=== PATIENT | male | born 1940 | race Caucasian/White ===

== ENCOUNTER 2020-09-05 10:14 | Day surgery (SDC) | payer OTHER ==
[~2020-09-05] VITALS: Ht 177.8 cm; Wt 100.6 kg
== END 2020-09-05 12:40 | disposition home or self-care (01) ==
LOC: ORSCSDS 10:14
PROVIDERS: Surgery
PROC: 0DBH8ZX Excision of Cecum, Via Natural or Artificial Opening Endoscopic, Diagnostic (ICD-10-PCS; principal; 2020-09-05 10:30)
PROC: 0DBL8ZX Excision of Transverse Colon, Via Natural or Artificial Opening Endoscopic, Diagnostic (ICD-10-PCS; principal; 2020-09-05 10:30)
PROC: 0DBM8ZX Excision of Descending Colon, Via Natural or Artificial Opening Endoscopic, Diagnostic (ICD-10-PCS; principal; 2020-09-05 10:30)
DX: R19.4 Change in bowel habit (principal); D12.3 Benign neoplasm of transverse colon; D12.0 Benign neoplasm of cecum; D12.4 Benign neoplasm of descending colon; K57.30 Diverticulosis of large intestine without perforation or abscess without bleeding; I10 Essential (primary) hypertension; G47.33 Obstructive sleep apnea (adult) (pediatric); Z87.891 Personal history of nicotine dependence; E11.40 Type 2 diabetes mellitus with diabetic neuropathy, unspecified; Z79.4 Long term (current) use of insulin; Z79.82 Long term (current) use of aspirin; Z79.899 Other long term (current) drug therapy
CPT/HCPCS: 82947; 88305; J2704; J7120

== ENCOUNTER 2020-11-08 10:04 | Emergency (ER) | payer OTHER ==
[~2020-11-08] VITALS: Ht 180.3 cm; Wt 61.2 kg
[2020-11-08 11:26] LABS: BASOPHILS ABSOLUTE AUTO 0.09 K/mm3 (0.00-0.23); BASOPHILS PERCENT AUTO 1 % (0-2); EOSINOPHILS ABSOLUTE AUTO 0.13 K/mm3 (0.00-0.68); EOSINOPHILS PERCENT AUTO 2 % (0-6); Hematocrit 44.4 % (37.0-53.0); Hemoglobin 15.1 g/dL (13.5-17.5); IMMATURE GRAN ABSOLUTE AUTO 0.02 K/mm3 (0.00-0.10); IMMATURE GRAN PERCENT AUTO 0 % (0-1); LYMPHOCYTES ABSOLUTE AUTO 1.73 K/mm3 (0.84-5.20); LYMPHOCYTES PERCENT AUTO 20 % (21-46); MONOCYTES ABSOLUTE AUTO 0.67 K/mm3 (0.16-1.47); MONOCYTES PERCENT AUTO 8 % (4-13); Mean Corpuscular HGB 31.3 pg (26.0-34.0); Mean Corpuscular Volume 92 fL (80-100); Mean Platelet Volume 10.2 fL (9.1-12.4); NEUTROPHILS ABSOLUTE AUTO 6.18 K/mm3 (1.96-9.15); NEUTROPHILS PERCENT AUTO 70 % (41-73); Platelet Count 256 K/mm3 (150-400); RDW Coefficient Variation 13.7 % (11.7-14.2); RDW Standard Deviation 46.4 fL (35.1-46.3); Red Blood Cell Count 4.82 M/mm3 (4.30-5.90); White Blood Cell Count 8.82 K/mm3 (4.00-11.30)
[2020-11-08 11:48] LABS: Alanine Aminotransfer (ALT/SGP 28 U/L (12-78); Albumin, Blood 3.8 g/dL (3.4-5.0); Albumin/Globulin Ratio 1.1 (0.8-1.8); Alk Phos 76 U/L (50-136); Anion Gap 5 mmol/L (6-16); Aspartate Aminotrans (AST/SGOT 18 U/L (12-37); Blood Urea Nitrogen 25 mg/dL (8-24); Bun/Creatinine Ratio 21.4 (12.0-20.0); CO2, Blood 25 mmol/L (21-32); Calcium, Blood 9.2 mg/dL (8.5-10.1); Chloride, Blood 111 mmol/L (98-108); Creatinine, Blood 1.17 mg/dL (0.60-1.20); Globulin, Blood 3.5 g/dL (2.2-4.0); Glomerular Filtration Rate >60 (60-); Glucose, Blood 136 mg/dL (70-99); Potassium, Blood 4.3 mmol/L (3.5-5.5); Sodium, Blood 141 mmol/L (136-145); Total Protein, Blood 7.3 g/dL (6.4-8.2); Troponin I <0.015 ng/mL (0.000-0.040)
== END 2020-11-08 14:48 | disposition home or self-care (01) ==
LOC: ER 10:04
PROVIDERS: Physician Assistant
DX: R06.00 Dyspnea, unspecified (principal); Z20.822 Contact with and (suspected) exposure to COVID-19; Z88.1 Allergy status to other antibiotic agents
CPT/HCPCS: 36415; 71046; 80053; 83880; 84484; 85025; 93005; 93010; 99285-25; A9270

== ENCOUNTER 2020-12-07 12:33 | Emergency (ER) | payer OTHER ==
[~2020-12-07] VITALS: Ht 177.8 cm; Wt 106.6 kg
[2020-12-07 13:11] LABS: BASOPHILS ABSOLUTE AUTO 0.09 K/mm3 (0.00-0.23); BASOPHILS PERCENT AUTO 1 % (0-2); EOSINOPHILS ABSOLUTE AUTO 0.07 K/mm3 (0.00-0.68); EOSINOPHILS PERCENT AUTO 1 % (0-6); Hematocrit 45.3 % (37.0-53.0); Hemoglobin 15.4 g/dL (13.5-17.5); IMMATURE GRAN ABSOLUTE AUTO 0.03 K/mm3 (0.00-0.10); IMMATURE GRAN PERCENT AUTO 0 % (0-1); LYMPHOCYTES PERCENT AUTO 18 % (21-46); MONOCYTES ABSOLUTE AUTO 0.58 K/mm3 (0.16-1.47); MONOCYTES PERCENT AUTO 7 % (4-13); Mean Corpuscular HGB 31.1 pg (26.0-34.0); Mean Corpuscular Volume 92 fL (80-100); NEUTROPHILS ABSOLUTE AUTO 5.95 K/mm3 (1.96-9.15); NEUTROPHILS PERCENT AUTO 72 % (41-73); Platelet Count 255 K/mm3 (150-400); RDW Coefficient Variation 13.4 % (11.7-14.2); RDW Standard Deviation 45.4 fL (35.1-46.3); Red Blood Cell Count 4.95 M/mm3 (4.30-5.90); White Blood Cell Count 8.22 K/mm3 (4.00-11.30)
[2020-12-07 13:24] LABS: Alanine Aminotransfer (ALT/SGP 29 U/L (12-78); Albumin, Blood 3.9 g/dL (3.4-5.0); Alk Phos 69 U/L (50-136); Anion Gap 8 mmol/L (6-16); Aspartate Aminotrans (AST/SGOT 23 U/L (12-37); Bilirubin, Total 1.5 mg/dL (0.1-1.0); Blood Urea Nitrogen 26 mg/dL (8-24); Bun/Creatinine Ratio 24.5 (12.0-20.0); CO2, Blood 22 mmol/L (21-32); Calcium, Blood 9.4 mg/dL (8.5-10.1); Chloride, Blood 108 mmol/L (98-108); Creatinine, Blood 1.06 mg/dL (0.60-1.20); Globulin, Blood 3.8 g/dL (2.2-4.0); Glomerular Filtration Rate >60 (60-); Glucose, Blood 135 mg/dL (70-99); Potassium, Blood 4.5 mmol/L (3.5-5.5); Sodium, Blood 138 mmol/L (136-145); Total Protein, Blood 7.7 g/dL (6.4-8.2)
[2020-12-07 15:07] LABS: Source, Urine Clean Catch
[2020-12-07 15:13] LABS: Appearance, Urine Clear (Clear); Bilirubin, Urine Neg (Neg); Blood, Urine Neg (Neg); Color, Urine Yellow (P-Yellow); Glucose Qualitative, Urine Neg (Neg); Ketones, Urine 1+ (Neg); Leukocyte Esterase, Urine Neg (Neg); Nitrite, Urine Neg (Neg); Protein, Urine Neg (Neg); Specific Gravity, Urine 1.005 (1.003-1.022); Urobilinogen, Urine NORM (Normal)
== END 2020-12-07 16:25 | disposition home or self-care (01) ==
LOC: ER 12:33
PROVIDERS: Emergency Medicine; Student in an Organized Health Care Education/Training Program
DX: R40.4 Transient alteration of awareness (principal); R53.1 Weakness; R30.0 Dysuria; Z88.1 Allergy status to other antibiotic agents
CPT/HCPCS: 36415; 51701; 51798; 80053; 81003; 82947; 84484; 85025; 93005; 93010; A9270

== ENCOUNTER 2020-12-10 10:32 | Emergency (ER) | payer OTHER ==
[~2020-12-10] VITALS: Ht 170.2 cm; Wt 90.7 kg
[2020-12-10 11:21] LABS: BASOPHILS ABSOLUTE AUTO 0.07 K/mm3 (0.00-0.23); BASOPHILS PERCENT AUTO 1 % (0-2); EOSINOPHILS ABSOLUTE AUTO 0.08 K/mm3 (0.00-0.68); EOSINOPHILS PERCENT AUTO 1 % (0-6); Hematocrit 43.9 % (37.0-53.0); Hemoglobin 14.7 g/dL (13.5-17.5); IMMATURE GRAN ABSOLUTE AUTO 0.03 K/mm3 (0.00-0.10); IMMATURE GRAN PERCENT AUTO 0 % (0-1); LYMPHOCYTES ABSOLUTE AUTO 1.43 K/mm3 (0.84-5.20); LYMPHOCYTES PERCENT AUTO 21 % (21-46); MONOCYTES PERCENT AUTO 7 % (4-13); Mean Corpuscular HGB Conc 33.5 g/dL (31.5-36.5); Mean Corpuscular Volume 93 fL (80-100); Mean Platelet Volume 10.4 fL (9.1-12.4); NEUTROPHILS PERCENT AUTO 70 % (41-73); Platelet Count 240 K/mm3 (150-400); RDW Coefficient Variation 13.7 % (11.7-14.2); RDW Standard Deviation 46.3 fL (35.1-46.3); Red Blood Cell Count 4.74 M/mm3 (4.30-5.90); White Blood Cell Count 6.91 K/mm3 (4.00-11.30)
[2020-12-10 11:46] LABS: Alanine Aminotransfer (ALT/SGP 27 U/L (12-78); Albumin, Blood 3.8 g/dL (3.4-5.0); Alk Phos 74 U/L (50-136); Anion Gap 6 mmol/L (6-16); Aspartate Aminotrans (AST/SGOT 23 U/L (12-37); Bilirubin, Total 1.3 mg/dL (0.1-1.0); Blood Urea Nitrogen 38 mg/dL (8-24); Bun/Creatinine Ratio 28.8 (12.0-20.0); CO2, Blood 22 mmol/L (21-32); Calcium, Blood 9.7 mg/dL (8.5-10.1); Chloride, Blood 109 mmol/L (98-108); Creatinine, Blood 1.32 mg/dL (0.60-1.20); Globulin, Blood 3.8 g/dL (2.2-4.0); Glomerular Filtration Rate 52 (60-); Glucose, Blood 179 mg/dL (70-99); Potassium, Blood 4.6 mmol/L (3.5-5.5); Sodium, Blood 137 mmol/L (136-145); Total Protein, Blood 7.6 g/dL (6.4-8.2); Troponin I <0.015 ng/mL (0.000-0.040)
[2020-12-10 11:58] LABS: Acetaminophen, Random <2.0 ug/mL (10.0-30.0)
== END 2020-12-10 13:30 | disposition home or self-care (01) ==
LOC: ER 10:32
PROVIDERS: Emergency Medicine Emergency Medical Services
DX: N17.9 Acute kidney failure, unspecified (principal); R33.9 Retention of urine, unspecified; Z88.1 Allergy status to other antibiotic agents
CPT/HCPCS: 36415; 51702; 51798; 70450; 71045; 80053; 81003; 83880; 84484; 85025; 93005; 93010; 99285-25; G0480

== ENCOUNTER 2020-12-12 09:34 | Emergency (ER) | payer OTHER ==
[~2020-12-12] VITALS: Ht 182.9 cm; Wt 104.3 kg
== END 2020-12-12 10:50 | disposition home or self-care (01) ==
LOC: ER 09:34
DX: Z46.6 Encounter for fitting and adjustment of urinary device (principal); Z88.1 Allergy status to other antibiotic agents
CPT/HCPCS: 99283

== ENCOUNTER 2020-12-15 11:07 | Emergency (ER) | payer OTHER ==
[~2020-12-15] VITALS: Ht 172.7 cm; Wt 86.2 kg
== END 2020-12-15 11:45 | disposition home or self-care (01) ==
LOC: ER 11:07
DX: Z46.6 Encounter for fitting and adjustment of urinary device (principal); Z88.1 Allergy status to other antibiotic agents

== ENCOUNTER 2020-12-21 09:25 | Emergency (ER) | payer OTHER ==
[~2020-12-21] VITALS: Ht 172.7 cm; Wt 102.1 kg
[2020-12-21] MEDS ORDERED: BASAGLAR K100 UNIT/3 SC (09:35)
[2020-12-21] MEDS ORDERED: BUSP10 PO (09:36)
[2020-12-21] MEDS ORDERED: DUTASTERIDE0.5 M3 PO (09:37)
[2020-12-21] MEDS ORDERED: MYRBETRIQ25 MG PO (09:37)
[2020-12-21] MEDS ORDERED: LOMOTIL 2.5-0.1 EACH PO (09:37)
[2020-12-21] MEDS ORDERED: EUTHYROX100 MC1 PO (09:37)
[2020-12-21] MEDS ORDERED: METFORMIN HCL1000 M9 PO (09:37)
[2020-12-21] MEDS ORDERED: Zestril40 MG PO (09:37)
[2020-12-21] MEDS ORDERED: TAMSULOSIN HCL0.4 M1 PO (09:38)
[2020-12-21 10:04] LABS: Source, Urine Catheter
[2020-12-21 10:13] LABS: Appearance, Urine Bloody (Clear); Bilirubin, Urine Neg (Neg); Blood, Urine 5+ (Neg); Color, Urine Red (P-Yellow); Glucose Qualitative, Urine Neg (Neg); Ketones, Urine 1+ (Neg); Leukocyte Esterase, Urine 3+ (Neg); Nitrite, Urine Neg (Neg); Protein, Urine 4+ (Neg); Urobilinogen, Urine NORM (Normal)
[2020-12-21 10:25] LABS: Red Blood Cells, Urine TNTC /hpf (0-2); White Blood Cells, Urine 25-50 /hpf (0-5)
[2020-12-21 10:27] LABS: Bacteria Many /hpf; Squamous Epithelial Cells Not Seen /hpf (Few)
[2020-12-21] MEDS ORDERED: SULTRIDS PO (10:45)
== END 2020-12-21 11:00 | disposition home or self-care (01) ==
LOC: ER 09:25
PROVIDERS: Student in an Organized Health Care Education/Training Program
DX: N39.0 Urinary tract infection, site not specified (principal); R31.0 Gross hematuria; Z88.1 Allergy status to other antibiotic agents; Z79.4 Long term (current) use of insulin; Z79.899 Other long term (current) drug therapy
CPT/HCPCS: 81001; 87077; 87086; 87186; 99283; A9270

== ENCOUNTER 2020-12-24 12:12 | Emergency (ER) | payer OTHER ==
[~2020-12-24] VITALS: Ht 175.3 cm; Wt 83.9 kg
[~2020-12-24 12:12] MED LIST: BASAGLAR K100 UNIT/3 SC; BUSP10 PO; DUTASTERIDE0.5 M3 PO; EUTHYROX100 MC1 PO; LOMOTIL 2.5-0.1 EACH PO; METFORMIN HCL1000 M9 PO; MYRBETRIQ25 MG PO; SULTRIDS PO; TAMSULOSIN HCL0.4 M1 PO; Zestril40 MG PO
[2020-12-24] MEDS ORDERED: CEFP200 PO (13:53)
== END 2020-12-24 15:35 | disposition home or self-care (01) ==
LOC: ER 12:12
DX: T83.9XXA Unspecified complication of genitourinary prosthetic device, implant and graft, initial encounter (principal); N39.0 Urinary tract infection, site not specified; Z88.1 Allergy status to other antibiotic agents; Z79.899 Other long term (current) drug therapy; Z79.4 Long term (current) use of insulin
CPT/HCPCS: 99283; A9270

== ENCOUNTER 2020-12-27 09:40 | Emergency (ER) | payer OTHER ==
[~2020-12-27] VITALS: Ht 172.7 cm; Wt 102.1 kg
[~2020-12-27 09:40] MED LIST changes: +CEFP200 PO
[2020-12-27] MEDS ORDERED: SACC250C PO (10:21)
== END 2020-12-27 10:36 | disposition home or self-care (01) ==
LOC: ER 09:40
DX: R19.7 Diarrhea, unspecified (principal); I10 Essential (primary) hypertension; E03.9 Hypothyroidism, unspecified; E11.9 Type 2 diabetes mellitus without complications; Z88.1 Allergy status to other antibiotic agents; Z79.4 Long term (current) use of insulin; Z79.899 Other long term (current) drug therapy
CPT/HCPCS: 99283

== ENCOUNTER → 2021-04-24 | Outpatient (CLI) | payer OTHER ==
[~2021-04-24] MED LIST changes: +SACC250C PO
[2021-04-24 14:55] LABS: Microalb/Creat Ratio UR, Rand 46.274 mg/g (0.000-30.000); Microalbumin, Random Urine 47.2 mg/L (0.000-20.000)
== END | disposition home or self-care (01) ==
LOC: LAB SHORT 11:24
PROVIDERS: Physician Assistant Medical
DX: E11.65 Type 2 diabetes mellitus with hyperglycemia (principal)
CPT/HCPCS: 82043; 82570

== ENCOUNTER 2021-08-10 10:21 | Emergency (ER) | payer OTHER ==
[~2021-08-10] VITALS: Ht 180.3 cm; Wt 120.2 kg
[~2021-08-10 10:21] MED LIST changes: +LISI20 PO; +[UNRECOGNIZED DRUG - CODE] PO
[2021-08-10 12:09] LABS: Source, Urine Foley catheter
[2021-08-10 12:12] LABS: Appearance, Urine Clear (Clear); Bilirubin, Urine Neg (Neg); Blood, Urine 2+ (Neg); Color, Urine Yellow (P-Yellow); Glucose Qualitative, Urine 4+ (Neg); Ketones, Urine Neg (Neg); Leukocyte Esterase, Urine 3+ (Neg); Nitrite, Urine Neg (Neg); Protein, Urine 1+ (Neg); Urobilinogen, Urine NORM (Normal)
[2021-08-10 12:29] LABS: Bacteria Few /hpf; Squamous Epithelial Cells Rare /hpf (Few)
== END 2021-08-10 12:16 | disposition home or self-care (01) ==
LOC: ER 10:21
PROVIDERS: Emergency Medicine
DX: T83.031A Leakage of indwelling urethral catheter, initial encounter (principal); Y73.8 Miscellaneous gastroenterology and urology devices associated with adverse incidents, not elsewhere classified; I10 Essential (primary) hypertension; E11.9 Type 2 diabetes mellitus without complications; Z79.84 Long term (current) use of oral hypoglycemic drugs; Z79.899 Other long term (current) drug therapy; Z88.1 Allergy status to other antibiotic agents; Z87.891 Personal history of nicotine dependence
CPT/HCPCS: 51702; 81001

== ENCOUNTER 2021-08-15 14:01 | Emergency (ER) | payer OTHER ==
[~2021-08-15] VITALS: Ht 180.3 cm; Wt 108.9 kg
== END 2021-08-15 16:17 | disposition home or self-care (01) ==
LOC: ER 14:01
DX: T83.9XXA Unspecified complication of genitourinary prosthetic device, implant and graft, initial encounter (principal); I86.1 Scrotal varices; E11.9 Type 2 diabetes mellitus without complications; Z79.84 Long term (current) use of oral hypoglycemic drugs; Z79.899 Other long term (current) drug therapy; Z88.1 Allergy status to other antibiotic agents; Z87.891 Personal history of nicotine dependence
CPT/HCPCS: 76870

== ENCOUNTER 2021-08-20 14:39 | Emergency (ER) | payer OTHER ==
[~2021-08-20] VITALS: Ht 180.3 cm; Wt 90.7 kg
[2021-08-20 15:17] LABS: BASOPHILS ABSOLUTE AUTO 0.09 K/mm3 (0.00-0.23); BASOPHILS PERCENT AUTO 1 % (0-2); EOSINOPHILS ABSOLUTE AUTO 0.12 K/mm3 (0.00-0.68); EOSINOPHILS PERCENT AUTO 2 % (0-6); Hematocrit 41.3 % (37.0-53.0); Hemoglobin 14.1 g/dL (13.5-17.5); IMMATURE GRAN ABSOLUTE AUTO 0.02 K/mm3 (0.00-0.10); IMMATURE GRAN PERCENT AUTO 0 % (0-1); LYMPHOCYTES ABSOLUTE AUTO 1.73 K/mm3 (0.84-5.20); LYMPHOCYTES PERCENT AUTO 25 % (21-46); MONOCYTES ABSOLUTE AUTO 0.53 K/mm3 (0.16-1.47); MONOCYTES PERCENT AUTO 8 % (4-13); Mean Corpuscular HGB Conc 34.1 g/dL (31.5-36.5); Mean Corpuscular Volume 94 fL (80-100); Mean Platelet Volume 10.4 fL (9.1-12.4); NEUTROPHILS ABSOLUTE AUTO 4.55 K/mm3 (1.96-9.15); NEUTROPHILS PERCENT AUTO 65 % (41-73); Platelet Count 282 K/mm3 (150-400); RDW Coefficient Variation 13.2 % (11.7-14.2); RDW Standard Deviation 45.4 fL (35.1-46.3); White Blood Cell Count 7.04 K/mm3 (4.00-11.30)
[2021-08-20 15:41] LABS: Source, Urine Foley catheter
[2021-08-20 15:41] LABS: Bun/Creatinine Ratio 27.4 (12.0-20.0); Calcium, Blood 9.9 mg/dL (8.5-10.1); Creatinine, Blood 1.64 mg/dL (0.60-1.20); Potassium, Blood 4.7 mmol/L (3.5-5.5)
[2021-08-20 15:44] LABS: Bilirubin, Urine Neg (Neg); Blood, Urine Neg (Neg); Color, Urine Yellow (P-Yellow); Glucose Qualitative, Urine Neg (Neg); Ketones, Urine Neg (Neg); Leukocyte Esterase, Urine Neg (Neg); Nitrite, Urine Neg (Neg); Protein, Urine Neg (Neg); Urobilinogen, Urine NORM (Normal)
[2021-08-20 15:57] LABS: Free Thyroxine 0.61 ng/dL (0.70-1.60)
[2021-08-20 15:59] LABS: Thyroid Stimulating Hormone 14.1 uIU/mL (0.360-4.800); Triiodothyronine, Free 1.45 pg/mL (2.18-3.98)
[2021-08-20 16:06] LABS: Appearance, Urine Hazy (Clear)
[2021-08-20 16:07] LABS: Amorphous Light (0-Heavy); Bacteria Mod /hpf; Red Blood Cells, Urine 0-2 /hpf (0-2); Squamous Epithelial Cells Not Seen /hpf (Few); White Blood Cells, Urine 0-2 /hpf (0-5)
[2021-08-20] MEDS ORDERED: EUTHYROX100 MC1 PO (16:55)
[2021-08-20 18:30] LABS: Bun/Creatinine Ratio 27.6 (12.0-20.0); Calcium, Blood 9.2 mg/dL (8.5-10.1); Creatinine, Blood 1.52 mg/dL (0.60-1.20); Potassium, Blood 4.9 mmol/L (3.5-5.5)
== END 2021-08-20 20:10 | disposition home or self-care (01) ==
LOC: ER 14:39
PROVIDERS: Student in an Organized Health Care Education/Training Program
DX: F03.90 Unspecified dementia, unspecified severity, without behavioral disturbance, psychotic disturbance, mood disturbance, and anxiety (principal); E11.9 Type 2 diabetes mellitus without complications; I10 Essential (primary) hypertension; E03.9 Hypothyroidism, unspecified; R74.8 Abnormal levels of other serum enzymes; Z88.1 Allergy status to other antibiotic agents; Z79.84 Long term (current) use of oral hypoglycemic drugs; Z79.899 Other long term (current) drug therapy; Z87.891 Personal history of nicotine dependence; Z91.14 Patient's other noncompliance with medication regimen; Z74.1 Need for assistance with personal care
CPT/HCPCS: 36415; 80048; 81001; 84439; 84443; 84481; 85025; 99285; A9270; J7030

== ENCOUNTER 2021-10-22 09:56 | Inpatient (IN) | payer OTHER ==
[~2021-10-22] VITALS: Ht 177.8 cm; Wt 87.3 kg
[2021-10-22 10:39] LABS: BASOPHILS ABSOLUTE AUTO 0.07 K/mm3 (0.00-0.23); BASOPHILS PERCENT AUTO 1 % (0-2); EOSINOPHILS ABSOLUTE AUTO 0.04 K/mm3 (0.00-0.68); EOSINOPHILS PERCENT AUTO 0 % (0-6); Hematocrit 45.5 % (37.0-53.0); Hemoglobin 15.3 g/dL (13.5-17.5); IMMATURE GRAN ABSOLUTE AUTO 0.06 K/mm3 (0.00-0.10); IMMATURE GRAN PERCENT AUTO 0 % (0-1); LYMPHOCYTES ABSOLUTE AUTO 1.93 K/mm3 (0.84-5.20); LYMPHOCYTES PERCENT AUTO 14 % (21-46); MONOCYTES ABSOLUTE AUTO 1.21 K/mm3 (0.16-1.47); MONOCYTES PERCENT AUTO 9 % (4-13); Mean Corpuscular HGB Conc 33.6 g/dL (31.5-36.5); Mean Corpuscular Volume 92 fL (80-100); Mean Platelet Volume 10.9 fL (9.1-12.4); NEUTROPHILS ABSOLUTE AUTO 10.58 K/mm3 (1.96-9.15); NEUTROPHILS PERCENT AUTO 76 % (41-73); Platelet Count 344 K/mm3 (150-400); RDW Coefficient Variation 13.2 % (11.7-14.2); RDW Standard Deviation 45.3 fL (35.1-46.3); Red Blood Cell Count 4.94 M/mm3 (4.30-5.90); White Blood Cell Count 13.89 K/mm3 (4.00-11.30)
[2021-10-22 10:46] LABS: Albumin, Blood 3.4 g/dL (3.4-5.0); Albumin/Globulin Ratio 0.8 (0.8-1.8); Bilirubin, Total 1.1 mg/dL (0.1-1.0); Bun/Creatinine Ratio 18.2 (12.0-20.0); Calcium, Blood 10.1 mg/dL (8.5-10.1); Creatinine, Blood 4.28 mg/dL (0.60-1.20); Globulin, Blood 4.3 g/dL (2.2-4.0); Potassium, Blood 5.7 mmol/L (3.5-5.5); Total Protein, Blood 7.7 g/dL (6.4-8.2)
[2021-10-22 11:46] LABS: Creatine Kinase MB 1.8 ng/mL (0.0-3.6); Creatine Kinase MB Index 0.9 (0.0-4.0)
[2021-10-22 11:56] LABS: Source, Urine Foley catheter
[2021-10-22 12:31] LABS: Appearance, Urine Cloudy (Clear); Blood, Urine 3+ (Neg); Color, Urine Yellow (P-Yellow); Glucose Qualitative, Urine Neg (Neg); Ketones, Urine 2+ (Neg); Leukocyte Esterase, Urine 3+ (Neg); Nitrite, Urine Neg (Neg); Protein, Urine 2+ (Neg); Specific Gravity, Urine 1.015 (1.003-1.022); Urobilinogen, Urine NORM (Normal)
[2021-10-22 12:46] LABS: Bilirubin, Urine 1+ (Neg)
[2021-10-22 12:47] LABS: White Blood Cells, Urine TNTC /hpf (0-5)
[2021-10-22 12:48] LABS: Bacteria Many /hpf; Calcium Oxalate Crystals Few /hpf; Squamous Epithelial Cells Few /hpf (Few)
[2021-10-22] MEDS ORDERED: DONEPEZIL HCL5 M2 PO (12:51)
[2021-10-22] MEDS ORDERED: PROZAC20 M9 PO (12:51)
[2021-10-22] MEDS ORDERED: BASAGLAR K100 UNIT/3 SC (16:23)
--- NOTE | 2021-10-22 17:40 | NUR ---
SPOKE WITH DR. TOMAS AND HE WILL BE UP SOON TO SEE THIS PATIENT AND ENTER FURTHER ORDERS. MED REC UPDATED.
--- NOTE | 2021-10-22 18:23 | NUR ---
SPOKE WITH CLARE, PATIENTS DAUGHTER PHONE # AND SHE HAD CONCERNS ABOUT PATIENT GOING BACK TO [facility]. SHE HAS BEEN WORKING ON FINDING HER DAD A FACILITY THT CAN OFFER MORE CARE NEAR [place], OR WHERE SHE LIVES. SHE WOULD LIKE A CALL FROM THE OFFICE RN.
[2021-10-23 05:31] LABS: BASOPHILS ABSOLUTE AUTO 0.06 K/mm3 (0.00-0.23); BASOPHILS PERCENT AUTO 1 % (0-2); EOSINOPHILS ABSOLUTE AUTO 0.26 K/mm3 (0.00-0.68); EOSINOPHILS PERCENT AUTO 4 % (0-6); Hematocrit 42.1 % (37.0-53.0); Hemoglobin 13.9 g/dL (13.5-17.5); IMMATURE GRAN ABSOLUTE AUTO 0.02 K/mm3 (0.00-0.10); IMMATURE GRAN PERCENT AUTO 0 % (0-1); LYMPHOCYTES PERCENT AUTO 28 % (21-46); MONOCYTES ABSOLUTE AUTO 0.82 K/mm3 (0.16-1.47); MONOCYTES PERCENT AUTO 11 % (4-13); Mean Corpuscular HGB 30.8 pg (26.0-34.0); Mean Corpuscular Volume 93 fL (80-100); Mean Platelet Volume 10.9 fL (9.1-12.4); NEUTROPHILS ABSOLUTE AUTO 4.06 K/mm3 (1.96-9.15); NEUTROPHILS PERCENT AUTO 56 % (41-73); Platelet Count 269 K/mm3 (150-400); RDW Coefficient Variation 13.3 % (11.7-14.2); RDW Standard Deviation 45.3 fL (35.1-46.3); Red Blood Cell Count 4.51 M/mm3 (4.30-5.90); White Blood Cell Count 7.22 K/mm3 (4.00-11.30)
[2021-10-23 06:03] LABS: Calcium, Blood 8.9 mg/dL (8.5-10.1); Creatinine, Blood 2.71 mg/dL (0.60-1.20); Magnesium, Blood 2.6 mg/dL (1.6-2.4); Potassium, Blood 5.1 mmol/L (3.5-5.5)
--- NOTE | 2021-10-23 07:22 | NUR ---
SHIFT SUMMARY: PATIENT IS A&O TO SELF AND PLACE. NO REPORTS OF DISCOMFORT. VSS, UP WITH AX2 TO THE BSC. UNABLE TO HAVE BM. CHOU IS DRAINING A CLEAR YELLOW URINE. IVF INFUSING PER MD ORDER. POOR APPETITE PERSISTS. ATE 1 ICE CREAM FOR SNACK. BLOOD GLUCOSE WAS 82 THIS AM. PATIENT REFUSED SNACK, DAY SHIFT RN MADE AWARE IN REPORT.
--- NOTE | 2021-10-23 18:02 | NUR ---
SHIFT SUMMARY NO ACUTE CHANGES DURING SHIFT. PATIENT LETHARGIC DURING MAJORITY OF DAY, SLEEPING EXCESSIVELY. PT SLIGHTLY MORE AROUSABLE TOWARDS END OF SHIFT. CONTINUE IV FLUIDS AND ABX. CHOU IN PLACE, DRAINING TO GRAVITY. NO C/O PAIN.
--- NOTE | 2021-10-24 06:13 | NUR ---
SHIFT SUMMARY: PATIENT IS A&OX2-3, ABLE TO MAKE NEEDS KNOWN, VSS. REPORTING BACK PAIN, TYLENOL WAS GIVEN WITH POOR EFFECT. DR GONZALEZ WAS NOTIFIED AND ORDERS FOR TRAMADOL 50 MG X1 WAS OBTAINED AND MED WAS GIVEN WITH AGAIN FAIR EFFECT. HEAT THERAPY WAS APPLIED TO BACK. POOR APPETITE CONTINUES. BLOOD GLUCOSE AT 000 WAS 181.
[2021-10-24 15:44] LABS: Bun/Creatinine Ratio 34.5 (12.0-20.0); Calcium, Blood 8.7 mg/dL (8.5-10.1); Creatinine, Blood 1.13 mg/dL (0.60-1.20); Potassium, Blood 4.8 mmol/L (3.5-5.5)
--- NOTE | 2021-10-24 18:17 | NUR ---
SHIFT SUMMARY NO ACUTE CHANGES DURING SHIFT. PT ALERT AND ORIENTED, FOLLOWS COMMANDS. PT MORE ALERT TODAY. C/O BACK PAIN, HEAT APPLIED, PRN PAIN MEDICATIONS ADMINISTERED. WILL CONTINUE TO MONITOR. PT/OT EVAL COMPLETED TODAY. PT STILL HAS DECREASED APPETITE WITH MINIMAL INTAKE. WILL CONTINUE TO MONITOR.
[2021-10-25 04:54] LABS: BASOPHILS ABSOLUTE AUTO 0.05 K/mm3 (0.00-0.23); BASOPHILS PERCENT AUTO 1 % (0-2); EOSINOPHILS ABSOLUTE AUTO 0.22 K/mm3 (0.00-0.68); EOSINOPHILS PERCENT AUTO 4 % (0-6); Hematocrit 38.5 % (37.0-53.0); Hemoglobin 12.4 g/dL (13.5-17.5); IMMATURE GRAN ABSOLUTE AUTO 0.02 K/mm3 (0.00-0.10); IMMATURE GRAN PERCENT AUTO 0 % (0-1); LYMPHOCYTES ABSOLUTE AUTO 1.82 K/mm3 (0.84-5.20); LYMPHOCYTES PERCENT AUTO 34 % (21-46); MONOCYTES ABSOLUTE AUTO 0.63 K/mm3 (0.16-1.47); MONOCYTES PERCENT AUTO 12 % (4-13); Mean Corpuscular HGB 30.5 pg (26.0-34.0); Mean Corpuscular HGB Conc 32.2 g/dL (31.5-36.5); Mean Corpuscular Volume 95 fL (80-100); Mean Platelet Volume 10.9 fL (9.1-12.4); NEUTROPHILS ABSOLUTE AUTO 2.62 K/mm3 (1.96-9.15); NEUTROPHILS PERCENT AUTO 49 % (41-73); Platelet Count 253 K/mm3 (150-400); RDW Coefficient Variation 13.2 % (11.7-14.2); RDW Standard Deviation 45.9 fL (35.1-46.3); Red Blood Cell Count 4.06 M/mm3 (4.30-5.90); White Blood Cell Count 5.36 K/mm3 (4.00-11.30)
[2021-10-25 05:21] LABS: Bun/Creatinine Ratio 27.8 (12.0-20.0); Calcium, Blood 8.7 mg/dL (8.5-10.1); Creatinine, Blood 1.08 mg/dL (0.60-1.20)
--- NOTE | 2021-10-25 05:23 | NUR ---
SHIFT SUMMARY AOX2-SELF, TOWN. FORGETFUL OF DATE OR SITUATION. VSS. REPORTS PAIN IN BACK, MEDICATED 1X c NORCO & PT SLEPT SOUGHLY T/O NIGHT. DENIES N/V OR DYSPNEA. AWAITING PLACEMENT. CHRONIC CHOU PATENT & DRAINING CLEAR YELLOW URINE. CALL LIGHT & BED ALARM IN PLACE. WILL MONITOR.
--- NOTE | 2021-10-25 18:15 | NUR ---
SHIFT SUMMARY NO ACUTE CHANGES DURING SHIFT. PT ALERT AND ORIENTED, FOLLOWS COMMANDS. PT UP OOB TO CHAIR FOR MEALS. CONTINUED C/O BACK PAIN, PRN MEDICATIONS ADMINISTERED, PT STATES EFFECTIVE. PT PENDING PLACEMENT STILL. WILL CONTINUE TO MONITOR.
--- NOTE | 2021-10-26 04:47 | NUR ---
SHIFT SUMMARY AOX2-3, SELF, DATE, TOWN, FOLLOWING DIRECTION. UNAWARE PLACE OR SITUATION, FORGETFUL. VSS. REPORTS PAIN IN LOW BACK, L SIDE ABD, MEDICATED c TYLENOL & 1X c NORCO. PT ALSO REPORTED FEELING NAUSEATED, MEDICATED c ZOFRAN & NO EMESIS. NOTICED NO BM REPORTED SINCE 10/21, INFORMED DR GONZALEZ & HE ORDERED BOWEL CARE MEDS. CHOU PATENT & DRAINING CLEAR YELLOW URINE. CBGS WNL NO COVERAGE NEEDED. AWAITING SAFE DC PLAN. CALL LIGHT IN REACH, BED ALARM IN PLACE.
--- NOTE | 2021-10-26 16:23 | NUR ---
SHIFT SUMMARY PT AxOx2-3 WITH FREQUENT CONFUSION AND ANXIOUS BEHAVIOR. PT ASKS OFTEN WHAT THE PLAN IS FOR HIM TO GET OUT OF HERE AND WANTS TO KNOW IF WE HAVE TALKED TO ALL OF HIS FAMILY. PT REORIENTED AND REASSURED WITH CONFUSION. PT REPORTS CONSTIPATION. BOWEL CARE PROVIDED THIS SHIFT. STILL NO BM. PT GETTING UP FOR MEALS WITH 1-2 ASSIST AND FWWN/GB. PT IS CURRENTLY RESTING IN BED WITH CALL LIGHT IN REACH. VITALS REVIEWED. PT DENIES ANY NEEDS AT THIS TIME.
--- NOTE | 2021-10-27 05:39 | NUR ---
SHIFT SUMMARY PT NAUSEATED @BEGINNING OF SHIFT & UNABLE TO EAT ANY DINNER, MEDICATED c PO ZOFRAN, NO EMESIS OR FURTHER COMPLAINTS. NO BM CHARTED SINCE 10/21, MEDICATED c STOOL SOFTENER, NO BM YET. AOX2-SELF, FOLLOWING DIRECTIONS, TOWN. UNAWARE DATE OR SITUATION & HAS INTERMITTANT INCREASED CONFUSION. VSS. REPORTS L LOW BACK PAIN, MEDICATED 1X c NORCO & PT ABLE TO REST WELL T/O NIGHT. DENIES DYSPNEA. CHRONIC CHOU PATENT & DRAINING CLEAR YELLOW URINE. AWAITING PLACEMENT. BED ALARM & CALL LIGHT IN REACH.
[2021-10-27 13:05] LABS: BASOPHILS ABSOLUTE AUTO 0.05 K/mm3 (0.00-0.23); BASOPHILS PERCENT AUTO 1 % (0-2); EOSINOPHILS ABSOLUTE AUTO 0.14 K/mm3 (0.00-0.68); EOSINOPHILS PERCENT AUTO 2 % (0-6); Hematocrit 39.5 % (37.0-53.0); Hemoglobin 13.5 g/dL (13.5-17.5); IMMATURE GRAN ABSOLUTE AUTO 0.02 K/mm3 (0.00-0.10); IMMATURE GRAN PERCENT AUTO 0 % (0-1); LYMPHOCYTES ABSOLUTE AUTO 1.81 K/mm3 (0.84-5.20); LYMPHOCYTES PERCENT AUTO 27 % (21-46); MONOCYTES PERCENT AUTO 9 % (4-13); Mean Corpuscular HGB 31.3 pg (26.0-34.0); Mean Corpuscular HGB Conc 34.2 g/dL (31.5-36.5); Mean Corpuscular Volume 91 fL (80-100); Mean Platelet Volume 10.7 fL (9.1-12.4); NEUTROPHILS PERCENT AUTO 62 % (41-73); Platelet Count 279 K/mm3 (150-400); RDW Coefficient Variation 13.2 % (11.7-14.2); RDW Standard Deviation 44.9 fL (35.1-46.3); Red Blood Cell Count 4.32 M/mm3 (4.30-5.90); White Blood Cell Count 6.82 K/mm3 (4.00-11.30)
[2021-10-27 15:04] LABS: Albumin, Blood 2.8 g/dL (3.4-5.0); Albumin/Globulin Ratio 0.7 (0.8-1.8); Bilirubin, Total 0.4 mg/dL (0.1-1.0); Bun/Creatinine Ratio 15.5 (12.0-20.0); Calcium, Blood 9.5 mg/dL (8.5-10.1); Creatinine, Blood 0.97 mg/dL (0.60-1.20); Potassium, Blood 4.7 mmol/L (3.5-5.5); Total Protein, Blood 6.8 g/dL (6.4-8.2)
--- NOTE | 2021-10-27 19:38 | NUR ---
SHIFT SUMMARY: PT A/O X 3, ONE ASSIST TO BSC WITH GB/WALKER. PT PLEASANT AND COOPERATIVE THROUGHOUT THE DAY. PT WORKED WITH PT/OT TODAY AND DID WELL. PT DID HAVE PAIN IN LOWER BACK AND WAS GIVEN NORCO WHICH WAS EFFECTIVE. MIRALAX AND PRUNE JUICE GIVEN FOR NO BM. PT DID NOT HAVE BM THROUGHOUT SHIFT BUT REPORTED HE WAS PASSING LOTS OF GAS. NO OTHER CONCERNS AT THIS TIME.
--- NOTE | 2021-10-27 20:37 | NUR ---
bedside transfer report from Jenae CHIN & assumed care to PT transferred to room 333. Ramon patent PT on room air. DC planning to involve DTR who lives in [place]. PT having bowel care drinking mirilax currently passing flatus.
--- NOTE | 2021-10-28 15:16 | NUR ---
SHIFT SUMMARY NO ACUTE CHANGES TO PRESENT THIS SHIFT. PT CONTINUES TO WAIT PLACEMENT FOR A FAUCILITY CLOSE TO [facility] IN [facility]. FRONT DESK RECEPTIONIST AND FAMILY WORKING ON ADULT CARE FAUCILITY. PT MEDICALLY STABLE FOR D/C. PT UP WITH P/T WALKING IN , AND LATER WITH STAFF WELL, USING FWW AND SBA. PLEASANT AND CO-OP WITH CARE. CAN BE IMPULSIVE, BUT REDIRECTABLE. BED AND CHAIR ALARMS USED FOR SAFETY. DENIES FURTHER NEEDS AT THIS TIME. CALL LT IN REACH.
--- NOTE | 2021-10-29 06:44 | NUR ---
pt WITH CHRONIC CHOU uti WHO WAS FOUND DOWN AT HIS CORRECTION APARTMENT WAS SHOWING NO BM IN OVER A WEEK. POOR APPETITE INTERMITTANT NAUSEA . MD WAS UPDATED THAT PT HAD REFUSED HS BOWEL CARE MIRALAX & DULCOLAX SUPP ORDERED & ADMINISTERED WITH LARGE BROWN PASTY BM RESULT. HE HAS MEMORY PROBLEMS MILD CONFUSION. FALL PRECAUTIONS, UP WITH ASSIST TO BSC FWW GB. ASPIRATION PRECAUTIONS PUREED DIET. DC PLANNING TO BE NEAR ADULT CHILDREN.
--- NOTE | 2021-10-29 16:13 | NUR ---
PT IS A/OX3. MILDLY FORGETFULL AT TIMES. PT IS UP WITH MINIMAL ASSIST TO THE BATHROOM AND TO THE CHAIR TODAY. PT WAS NAUSEATED TODAY AND HAD A LARGE AMOUNT OF ARANDA COLORED EMISIS. THE PT HAS A POOR APPETITE. PT WAS MEDICATED FOR NAUSEA. AND PAIN THIS AFTERNOON. THE PT WORKED WITH THE PHYSICAL THERAPIST THIS AM AND TOLERATED THAT WELL. CALL LIGHT IN REACH. WILL CONTINUE TO MONITOR AND ASSESS FOR CHANGES
--- NOTE | 2021-10-30 17:11 | NUR ---
PT IS A/OX3. PLEASANT AND COOPERATIVE. THE PT IS UP WITH MINIMAL ASSIST USEING THE FWW. THE PT WORKED WITH BOTH THE PHYSICAL AND OCCUPATIONAL THERAPIST TODAY. THE PT WAS MEDICATED FOR LOW LEFT SIDE BACK PAIN X2 TODAY SO FAR. THE PT IS UP IN THE CHAIR AT THIS TIME FOR THE SECOND TIME TODAY. PT APPEARS TO BE BREATHING EASILY ON RA AT THIS TIME. PT DENIED ANY NAUSEA TODAY. CALL LIGHT IN REACH. WILL CONTINUE TO MONITOR AND ASSESS FOR CHANGES.
--- NOTE | 2021-10-31 06:43 | NUR ---
SHIFT SUMMARY: PATIENT IS A&OX3 WITH FORGETFULNESS AT TIMES, VSS. PATIENT CONTINUES TO REPORT PAIN IN BACK AND DOWN LEFT FEG. NORCO WAS GIVEN X2 WITH GOOD EFFECT. CHOU IS PATENT FOR AND ALIN CLOUDY URINE. NO ACUTE CHANGES.
[2021-10-31 14:14] LABS: Influenza A, PCR NEGATIVE (NEGATIVE); Influenza B, PCR NEGATIVE (NEGATIVE); Resp Syncytial Virus, PCR NEGATIVE (NEGATIVE); SARS-Cov-2 (COVID-19) PCR, MMC NEGATIVE (NEGATIVE)
--- NOTE | 2021-10-31 18:37 | NUR ---
PT IS A/OX2. HAS PERIODS OF MILD CONFUSION. PT IS PLEASANT AND COOPERATIVE. THE PT IS UP WITH ASSIST TO THE BATHROOM AND TO THE CHAIR. PT APPEARS TO BE BREATHING EASILY ON RA. PT HAS A POOR APPETITE HAS BEEN UP TO THE BATHROOM BUT IS ONLY PASSING GAS AT THIS . PT WAS GIVEN BOWEL CARE MEDS THIS AM. PT WAS MEDICATED FOR NAUSEA THIS EVENING. CALL LIGHT IN REACH. EXPECT DISCHARGE ON WEDNESDAY TO SNF IN [place]
--- NOTE | 2021-11-01 04:58 | NUR ---
SHIFT SUMMARY: PATIENT IS A&OX2, DOES NOT KNOW DATE. VSS, CONTINUES TO REPORT LOW BACK PAIN THAT REDIATES DOWN THE LEFT SIDE, MEDICATED WITH NORCO WITH GOOD EFFECT. JOSÉ ANTONIO IS PATENT FOR CLEAR YELLOW URINE.
--- NOTE | 2021-11-01 07:01 | NUR ---
GI: PATIENT WAS CONSTIPATED, PRN SUPPOSITORY WAS GIVEN. PATIENT HAD A LARGE RESULT.
--- NOTE | 2021-11-01 13:54 | NUR ---
SHIFT SUMMARY NO ACUTE CHANGES TO PRESENT THIS SHIFT. PT UP TO BTHRM FOR LRG BM AT START OF SHIFT. UP TO BTHRM AGAIN AFTER LUNCH; UNSUCCESSFUL. PT ONLY EATING SM AMTS OF MEALS. CONTINUES TO WAIT FOR PLACEMENT TO [facility] ON WEDNESDAY, UP NEAR HIS DAUGHTER AND SON. OCCASSIONALLY WILL C/O PAIN TO LOW BACK, LIDOCAINE PATCH PLACED PER EMAR. UP TO CHAIR AT BS FOR MEALS. RESTING QUIETLY IN BE AT THIS TIME. CALL LT IN REACH. BED ALARM ON FOR SAFETY.
--- NOTE | 2021-11-02 07:18 | NUR ---
SHIFT SUMMARY: PATIENT CONTINUES TO REPORT BACK AND LEFT HIP PAIN. MEDICATED WITH NORCO X2 THIS SHIFT WITH GOOD EFFECT. BOWEL CARE MED WERE HELD DUE TO INC. OF A LARGE AMOUNT OF STOOL.
--- NOTE | 2021-11-02 15:34 | NUR ---
SHIFT SUMMARY PT AWAKE TODAY AT START OF SHIFT, DURING SHIFT REPORT. PLEASANT AND CO-OP. WAITING TO GO HOME WITH DAUGHTER AND SON. PT GETTING CONFUSED ABOUT HOW HE WOULD GET TO LEAVE HERE. CLARIFICATION GIVEN BY STAFF AND LATER DAUGHTER WHEN SHE CAME IN TO VISIT. DAUGHTER TO TAKE PT TO [place] SOON POSSIBLE TOMORROW AM. UP TO CHAIR FOR MEALS AND BACK TO BED INBETWEEN, PER PT REQUEST. UP TO BTHRM AGAIN TODAY FOR BM. PT CONTINENT TODAY. NO BOWEL CARE GIVEN. PT HAD EXTRA LRG LIQUID BM AFTER DINNER LAST NIGHT; INCONTINENT IN CHAIR AND ASSISTED TO BTHRM TO FINISH AND GET CLEANED UP. PT HAS NOT C/O PAIN AT ALL TODAY; VERY EXCITED ABOUT GETTING TO LEAVE TOMORROW. BED AND CHAIR ALARM ON FOR SAFETY. CALL LT IN REACH.
--- NOTE | 2021-11-03 07:50 | NUR ---
SHIFT SUMMARY: CHRONIC BACK PAIN IS CONTROLED WELL WITH LIDOCAIN PATCH AND PRN NORCO GIVEN TWICE. VSS, ATE 1 ICE CREAM FOR HS SNACK. BLOOD GLUCOSE AT HS WAS 100. PATIENT HAD ANOTHER EPISODE OF BOWEL INC. OF A LARGE AMOUNT. BOWEL CARE MEEDS HAVE BEEN HELD.
[2021-11-03 09:45] LABS: Influenza A, PCR NEGATIVE (NEGATIVE); Influenza B, PCR NEGATIVE (NEGATIVE); Resp Syncytial Virus, PCR NEGATIVE (NEGATIVE); SARS-Cov-2 (COVID-19) PCR, MMC NEGATIVE (NEGATIVE)
[2021-11-03] MEDS ORDERED: Acetaminophen650 M1 PO (10:25)
[2021-11-03] MEDS ORDERED: ALOGLIPTIN6.25 M1 PO (10:25)
[2021-11-03] MEDS ORDERED: BISA10S PR (10:26)
[2021-11-03] MEDS ORDERED: Norco 5-325 Ta1 EACH PO (10:27)
[2021-11-03] MEDS ORDERED: MIRALAX17 GM PO (10:28)
[2021-11-03] MEDS ORDERED: LIDO700A20 TOP (10:28)
--- NOTE | 2021-11-03 12:46 | NUR ---
DISCHARGE PATIENT TRANSPORTED VIA WHEELCHAIR TO PRIVATE VEHICLE. PATIENT GOING TO SNF IN [place], TRANSPORTED BY DAUGHTER. DISCHARGE PACKET SENT WITH DAUGHTER FOR FACILITY. MEDICATIONS AND DISCHARGE ORDERS ALSO FAXED TO FACILITY, CONFIRMED THEY RECIEVED FAX. PATIENT HAS NO IV. BELONGINGS SENT WITH PATIENT. REPORT CALLED TO [facility]. HARD SCRIPT FOR NORCO IN PACKET, DAUGHTER AWARE, WILL MAKE SURE FACILITY KNOWS. THIS RN ALSO TOLD RECIEVING NURSE HARD SCRIPT WAS IN PACKET.
== END 2021-11-03 13:04 | DRG 698 ==
LOC: ER 09:56 → MEDS 15:13
PROVIDERS: Emergency Medicine; Family Medicine; Internal Medicine Endocrinology, Diabetes & Metabolism; ADMIT Internal Medicine
DX: T83.511A Infection and inflammatory reaction due to indwelling urethral catheter, initial encounter (principal); G93.41 Metabolic encephalopathy; N17.9 Acute kidney failure, unspecified; E87.2 Acidosis; N39.0 Urinary tract infection, site not specified; N20.0 Calculus of kidney; E11.22 Type 2 diabetes mellitus with diabetic chronic kidney disease; E03.9 Hypothyroidism, unspecified; F03.90 Unspecified dementia, unspecified severity, without behavioral disturbance, psychotic disturbance, mood disturbance, and anxiety; Z20.822 Contact with and (suspected) exposure to COVID-19; N18.30 Chronic kidney disease, stage 3 unspecified; I12.9 Hypertensive chronic kidney disease with stage 1 through stage 4 chronic kidney disease, or unspecified chronic kidney disease; E78.00 Pure hypercholesterolemia, unspecified; N40.1 Benign prostatic hyperplasia with lower urinary tract symptoms; R32 Unspecified urinary incontinence; I87.2 Venous insufficiency (chronic) (peripheral); E87.5 Hyperkalemia; B95.2 Enterococcus as the cause of diseases classified elsewhere; B96.20 Unspecified Escherichia coli [E. coli] as the cause of diseases classified elsewhere; Z96.0 Presence of urogenital implants; Z88.1 Allergy status to other antibiotic agents; Z79.84 Long term (current) use of oral hypoglycemic drugs; Z79.811 Long term (current) use of aromatase inhibitors; Z79.899 Other long term (current) drug therapy; Z87.891 Personal history of nicotine dependence; Z98.890 Other specified postprocedural states; Z79.4 Long term (current) use of insulin
CPT/HCPCS: 0241U; 36415; 51702; 70450; 76770; 80048; 80053; 81001; 82550; 82553; 82947; 83735; 83880; 84484; 85025; 87077; 87086; 87186; 93005; 93010; 96360-59; 97110; 97116; 97162; 97165; 97530; 97535; 99285-25; A9270; J0696; J1650; J1815; J7030